=== PATIENT | female | born 1960 | race Caucasian/White ===

== ENCOUNTER → 2024-02-14 12:07 | Outpatient (REF) | payer MEDICARE, BC, SELFPAY | LOC: WDC 12:07 | PROVIDERS: ATTENDING PHYSICIAN Nurse Practitioner Women's Health; FAMILY PHYSICIAN Family Medicine | DX: Z12.31 Encounter for screening mammogram for malignant neoplasm of breast (principal) | CPT/HCPCS: 77063; 77067 ==

== ENCOUNTER → 2024-10-24 10:52 | Outpatient (REF) | payer MEDICARE, BC, SELFPAY | LOC: HWRAD 10:52 | PROVIDERS: ATTENDING PHYSICIAN Family Medicine | DX: H81.90 Unspecified disorder of vestibular function, unspecified ear (principal) | CPT/HCPCS: 70450 ==

== ENCOUNTER 2024-12-04 00:51 | Emergency (ER) | payer MEDICARE, BC, SELFPAY ==
[2024-12-04 00:52] VITALS: BP 168/98
--- NOTE | 2024-12-04 01:22 | ED.GENMED ---
History of Present Illness
General
Chief Complaint: Eye Problems
Source: patient
Exam Limitations: none
Time Seen by Provider: 12/04/24 01:00
History of Present Illness
History of Present Illness:
See MDM
Past History
Past History
ED Past Medical History: None
Phy Exam
Physical Exam
Physical Exam:
See MDM
Course
Orders/Labs/Results
Orders:
Orders
12/04/24 01:18
Fluorescein Sodium [Ful-Donna] 1 mg .ROUTE .STK-MED ONE
12/04/24 01:21
Ciprofloxacin HCl [Ciloxan 0.3% Ophthalmic Solution] See Dose Instructions OPHTH NOW STA
Vital Signs
Initial and Last Documented VS:
Initial Vital Signs
Temp Pulse Resp BP Pulse Ox
97.8 F 108 20 168/98 98
12/04/24 00:52 12/04/24 00:52 12/04/24 00:52 12/04/24 00:52 12/04/24 00:52
Last Documented Vital Signs
Temp Pulse Resp BP Pulse Ox
97.8 F 108 20 168/98 98
12/04/24 00:52 12/04/24 00:52 12/04/24 00:52 12/04/24 00:52 12/04/24 01:25
MDM/Problems Addressed
Differential Diagnosis Includes:
Note:
CHIEF COMPLAINT(S)
The patient presents with discomfort and the sensation of a foreign body in the left eye after wearing contact lenses.
HISTORY OF PRESENT ILLNESS
The patient is a 64-year-old female who complains of eye irritation that felt like something was poking or stuck in her left eye. This sensation worsened when she closed her eye. The discomfort began today while she was wearing her contact lenses
and persisted throughout the day. She reported that the eye felt 'weird' without explicit pain earlier in the day, but the irritation became more bothersome over time. She attempted to inspect her eye but could not identify any visible foreign body.
The patient described experiencing blurry vision, attributing it to irritation and difficulty due to the absence of her contacts. Upon examination, a scratch was identified over the pupil, indicating a corneal abrasion. A diagnostic tool with a
numbing agent and yellow dye was used to confirm the presence of the abrasion. The patient confirmed some relief with the application of the numbing drops, making it likely an external issue.
SOCIAL HISTORY
The patient wears contact lenses regularly.
REVIEW OF SYSTEMS
- Vision: Blurry vision, sensation of foreign body in the eye, worsened discomfort with closure of the eye.
PHYSICAL EXAM
General: Alert, no acute distress.
Skin: Warm, dry.
Head: Normocephalic, atraumatic
Neck: Appears supple, trachea midline.
Eyes, Ears, Nose, Mouth, and Throat: Oral mucosa moist. Corneal abrasion noted to central left eye with fluorescein staining. Negative Sidel sign
Cardiovascular: No signs of cyanosis
Respiratory: Respirations are non-labored.
Abdomen: Non-distended
Musculoskeletal: No deformities
Neurological: No focal neurological deficit observed.
Psychiatric: Cooperative, appropriate mood and affect.
PROBLEM LIST
Acute: Corneal abrasion secondary to contact lens wear.
PLAN
- Administered topical anesthetic (Tetracaine) for pain relief during the examination.
- Topical antibiotic drops, likely ciprofloxacin, were recommended to prevent infection, considering contact lens use and risk for bacterial contamination, including from Pseudomonas.
- Advised the patient to follow up with an franchise specialist for further evaluation and management.
- Patient instructed on using any remaining anesthetic drops sparingly and warned about potential risks with overuse.
DIFFERENTIAL DIAGNOSIS
The Differential Diagnosis includes, in no particular order and is not limited to:
1. Corneal Abrasion
2. Foreign Body in the Eye
3. Contact Lens-Related Irritation
4. Allergic Conjunctivitis
5. Keratitis
6. Dry Eye Syndrome
7. Blepharitis
8. Acute Glaucoma
9. Uveitis
10. Herpes Simplex Keratitis
Disposition:
SUMMARY OF ENCOUNTER
The patient, a 64-year-old female, presented with discomfort and the sensation of a foreign body in the left eye after wearing contact lenses. Examination revealed a corneal abrasion. A topical anesthetic was administered, providing some relief.
Based on her regular use of contact lenses, the decision was made to prescribe ciprofloxacin eye drops to prevent infection, particularly due to the risk of Pseudomonas.
DISPOSITION
Discharge.
ASSESSMENT
Corneal abrasion likely secondary to contact lens use.
EMERGENCY TREATMENTS ADMINISTERED
Topical anesthetic drops were administered for pain relief during the examination.
PLAN
The patient was advised to use ciprofloxacin eye drops to prevent bacterial infection. A follow-up with her franchise specialist was recommended for further evaluation and management.
PATIENT EDUCATION AND COUNSELING
The patient was informed about the importance of using the prescribed antibiotic drops to prevent infection and avoiding contact lens use until cleared by an franchise specialist. Potential risks of overusing anesthetic drops were discussed.
FOLLOW-UP INSTRUCTIONS
The patient was instructed to follow up with her franchise specialist for further evaluation.
MEDICATION RECONCILIATION
Ciprofloxacin ophthalmic solution was prescribed for the management of corneal abrasion to prevent infection.
MEDICAL DECISION MAKING
-Number and Complexity of Problems Addressed: Chronic conditions affecting care: Regular use of contact lenses. Differential diagnosis includes corneal abrasion, foreign body in the eye, contact lens-related irritation, allergic conjunctivitis,
keratitis, dry eye syndrome, blepharitis, acute glaucoma, uveitis, herpes simplex keratitis.
-Data:
Category 1: No external records reviewed.
-Risk: Prescription medication was prescribed: Ciprofloxacin eye drops for infection prevention due to contact lens-related corneal abrasion.
DIAGNOSIS
Corneal abrasion (ICD-10: S05.0X1A).
*Pulse Oximetry
SaO2: 98
Patient hypoxic: no
*Critical Care Note
Total Time (30-74mins, 75-104mins- exclusive of procedures): Not Applicable
ED Attending Note
-
Portions of this chart may have been created with voice recognition software.� Occasional wrong word or��sound alike� substitutions may have occurred due to the inherent limitations of voice recognition software.
Discharge Plan
Departure
Patient Disposition: Home (Routine Discharge)
Date of Disposition: 12/04/24
Time of Disposition: 01:23
Patient with high blood pressure during this ER visit?: Yes
Discharge Problem:
Abrasion, corneal
Instructions: Corneal Abrasion (DC), BLOOD PRESSURE
Activity Restrictions/Additional Instructions:
Please return for any worsening symptoms.
You may return at any time if you have further concerns.
Please use 2 drops every 4-6 hours for the next 7 days.
Please follow up with your eye doctor at the first available appointment, preferably this week.
Thank you for choosing [facility].
Discharge Date and Time
Print Language: TURKISH
[2024-12-04] MEDS: CILOXAN 0.3% OPHTHALMIC SOLUTION 1 DROP LEFT EYE (01:54)
== END 2024-12-04 02:06 | disposition home or self-care (01) ==
LOC: EMR 00:51
PROVIDERS: EMERGENCY PHYSICIAN Student in an Organized Health Care Education/Training Program; FAMILY PHYSICIAN Family Medicine
DX: S05.02XA Injury of conjunctiva and corneal abrasion without foreign body, left eye, initial encounter (principal); W22.8XXA Striking against or struck by other objects, initial encounter
CPT/HCPCS: 99283

== ENCOUNTER → 2025-01-07 10:51 | Outpatient (REF) | payer MEDICARE, BC, SELFPAY | LOC: HWRAD 10:51 | PROVIDERS: ATTENDING PHYSICIAN Internal Medicine Rheumatology; FAMILY PHYSICIAN Family Medicine | DX: M81.0 Age-related osteoporosis without current pathological fracture (principal) | CPT/HCPCS: 77080 ==

== ENCOUNTER → 2025-02-16 13:37 | Outpatient (REF) | payer MEDICARE, BC, SELFPAY | LOC: WDC 13:37 | PROVIDERS: ATTENDING PHYSICIAN Nurse Practitioner Women's Health; FAMILY PHYSICIAN Family Medicine | DX: Z12.31 Encounter for screening mammogram for malignant neoplasm of breast (principal) | CPT/HCPCS: 77063; 77067 ==

== ENCOUNTER → 2025-03-10 10:01 | Outpatient (REF) | payer MEDICARE, BC, SELFPAY | LOC: RCS 10:01 | PROVIDERS: ATTENDING PHYSICIAN Family Medicine | DX: R00.2 Palpitations (principal) | CPT/HCPCS: 93225; 93226 ==